=== PATIENT | male | born 1945 | race Caucasian/White ===

== ENCOUNTER 2023-07-24 12:40 | Emergency (ER) | payer OTHER, SELFPAY ==
[2023-07-24 12:44] VITALS: BP 151/48; BMI 31.9
[2023-07-24 14:01] LABS: Glucose - Point of Care 140 mg/dl (70-99)
--- NOTE | 2023-07-24 14:04 | ED.GENMED ---
History of Present Illness
General
Chief Complaint: Fall
Source: patient and ambulance crew
Exam Limitations: none
Time Seen by Provider: 07/24/23 13:20
Nursing documentation reviewed up to this point in time: agreed with
Travel History
Have you had any contact with someone who has COVID-19?: No
Do you have any symptoms of coronavirus? Fever > 100 degrees, chills, cough, shortness of breath, sore throat, loss of taste or smell, muscle aches, or headache?: No
History of Present Illness
History of Present Illness:
Patient is a 78-year-old male with a history of a stroke causing aphasia chronically, on [facility] who presents via EMS after mechanical trip and fall. Patient was leaving the [employer] house and said he tripped causing him to hit his face on the ground.
He had no loss of consciousness but he does have a laceration above his left eyebrow and perhaps bleeding from his nose. He denies significant headache, confusion, weakness or numbness in arms or legs, chest pain, belly pain, back pain, hip pain.
Patient does have swelling on his face which is slightly sore and a bump on his left wrist and pain in his left elbow. He is also complaining of mild neck discomfort
he denied chest pain initially but then said his left lower ribs hurt; pt has no pain with bleeding, no sob
Patient's does not know that the patient is here. I did call her and make her aware
Past History
Past History
ED Past Medical History: CVA, HTN, Hypercholesterolemia and IDDM
Social History
Tobacco: Non-smoker
Alcohol: None
Drug: None
Personal:
Living: with family
Review of Systems
Review of Systems
Allergies reviewed?: Yes
All Other Systems: Not applicable
Phy Exam
Physical Exam
Physical Exam:
GENERAL: Alert , in no apparent distress
HEAD: Patient has soft tissue swelling within the left superior orbit with in the eyebrow region with a laceration approximately 2 cm, the area is slightly tender to palpation
NECK: Mild lower neck tenderness, active ROM intact, no paraspinal muscle tenderness;
EYE: pupils equal and reactive, EOMs intact.
ENT: o/p clr, mmm. no hemotympanum
CARDIAC: Regular rate and rhythm, no edema
LUNGS: Clear breath sounds bilaterally, no acute respiratory distress, no wheezes/rales/rhonchi
ABDOMEN: Soft, without focal tenderness, no r/g, no cvat
NEUROLOGICAL: Alert and oriented, no focal neuro deficits, CN intact, 5/5 strength, sensation intact
SKIN: Warm and dry, laceration left eyebrow bruise to the left dorsal ulnar styloid region
MUSCULOSKELETAL: Left wrist swelling with mild pain and left elbow discomfort with full flexion and rotation
PSYCH: Normal and appropriate interaction.
Course
Orders/Labs/Results
Orders:
Orders
07/24/23 13:41
CT Cervical Spine W/o Iv Contr Urgent
Comment:
Reason For Exam: fall, neck pain
CT Facial Bones W/o Iv Contras Urgent
Comment:
Reason For Exam: fall forward, left eyebrow lac, nose bleeding
CT Head W/o Iv Contrast Urgent
Comment:
Reason For Exam: fall on eliquis
Bedside Glucose- Treatment ONCE
CR Forearm - Left 2 View Urgent
Comment:
Reason For Exam: left elbow and wrist pain after fall
07/24/23 15:46
Cephalexin Monohydrate [Keflex] 250 mg PO NOW STA
07/24/23 16:35
Tetanus/Diphth/Acelpertussis [Adacel] 0.5 ml IM .ONCE ONE
Abnormal Lab Results
07/24/23
13:57
POC Glucose 140 H mg/dl
(70-99)
Vital Signs
Initial and Last Documented VS:
Initial Vital Signs
Temp Pulse Resp BP Pulse Ox
97.6 F 52 18 151/48 97
07/24/23 12:44 07/24/23 12:44 07/24/23 12:44 07/24/23 12:44 07/24/23 12:44
Last Documented Vital Signs
Temp Pulse Resp BP Pulse Ox
97.6 F 49 18 174/62 98
07/24/23 12:44 07/24/23 16:38 07/24/23 12:44 07/24/23 16:38 07/24/23 16:38
Procedures
Laceration Closure
Left Upper Eye:
Status of Wound: clean
Description of Wound Edges: ragged and macerated
Preparation: cleaned with saline
Anesthesia: 1% Lidocaine with epi
Revision/Debridement: minor revision and irrigate-direct pressure
Wound exploration: explored to base- no FB
Type of Closure: single layer closure
Skin Closure Material: 5-0 prolene
Number of sutures: 8
Additional information:
also 1 suture placed in nose; 1 cm laceration, wound well approsmimated, linear
MDM/Problems Addressed
Differential Diagnosis Includes:
facial fracture, head injury, facial laceration, nose bleed, wrist fracture
MDM/Problems Addressed:
78 y/o m with ho cva on eliquis
h/o aphasia at baseline so he has had some slurred speech which seems stable for him
[place]pt says he was trying to keep up with other people and tripped and hit his face on the ground, no LOC
has a laceration left eyebrow and bridgre of nose with some left superior orbital swelling, left forearem pain/bruising
he initially didn't c/o rib pain but then said later it was sore
pt has not had any sob, cp, syncope, headache, vomiting, uncontrolled bleeding
tetanus was unkonwn and updated here
laceration was repaired on his left eyebrow
and 1 suture on his nose
well approximated
cts show nasal fracture
given overlyin laceration will cover with abx
all to pen with rash, but willtry keflex
ct head neg
ct c spine no fracture
left forearm xray indep reveiwed by me and neg for fx
was notified regaridng update
his son will pick him up
offered rib xray but pt says it is mild and denies that he wants cxrya
*Critical Care Note
Total Time (30-74mins, 75-104mins- exclusive of procedures): Not Applicable
ED Attending Note
-
Portions of this chart may have been created with voice recognition software.� Occasional wrong word or��sound alike� substitutions may have occurred due to the inherent limitations of voice recognition software.
Discharge Plan
Departure
Patient Disposition: Home (Routine Discharge)
Date of Disposition: 07/24/23
Time of Disposition: 16:35
Patient with high blood pressure during this ER visit?: Yes
Condition: Fair
Covid-19: Not Applicable
Discharge Problem:
Fall, Laceration of face, Fractured nose
Instructions: Head Injury in Adults (DC), Laceration Repair With Stitches (DC), Nose Fracture (DC), BLOOD PRESSURE
Prescriptions:
New
cephalexin 250 mg capsule
250 mg PO Q8H 5 Days Qty: 15 0RF
No Action
furosemide 40 MG tablet
40 mg PO DAILY
pioglitazone 45 MG tablet
45 mg PO DAILY
clonidine HCl 0.2 MG tablet
0.2 mg PO TID
simvastatin 20 MG tablet
1 tab PO DAILY
irbesartan [Avapro] 300 MG tablet
300 mg PO DAILY
Coreg
20 tab PO BID
Humalog Mix 50/50
42 unit SQ DAILY AT 0700
Patient Comments:
in am
Humalog Mix 50/50
46 units SQ QPM
METFORMIN HCL
1,000 mg PO BID
doxazosin 1 MG tablet
1 mg PO DAILY
aspirin 81 MG tablet,delayed release (DR/EC)
81 mg PO DAILY
Referrals:
Ricardo Max MD [Active] - Follow up in 5-7 days (FOR NOSE FRACTURE)
Sparkle Marti, DO [Family Provider] - Follow up in 5-7 days
Activity Restrictions/Additional Instructions:
LAILA BROKE HIS NOSE AND HAS STITCHES BUT NO BRAIN BLEEDING
ICE OFF AND ON
TYLENOL FOR PAIN NEEDED
KEFLEX 3 TIMES A DAY TO PREVENT INFECTION FOR 5 DAYS
FOLLOW UP WITH EAR NOSE AND THROAT NEEDED FOR THE NASAL BONE FRACTURE, LIKELY HE WON'T NEED ANYTHING DONE.
FOR THE STITCHES KEEP the wound clean and dry and then wash twice a day
they should be removed in 7 days by his family doctor
RETURN FOR VOMITING, CONFUSION, WEAKNESS, FACIAL PAIN, NOSE BLEEDING, INFECTION OR ANY CONCERNS.
Interventions
Interventions:
*Risk Screen - Suicide Last Done: 07/24/23 12:44
*General Assessment Last Done: 07/24/23 12:44
*Neglect/Abuse Screening Last Done: 07/24/23 12:44
ED- Fall Risk Assessment Last Done: 07/24/23 13:18
*ED COVID-19 Vaccine History Last Done: 07/24/23 12:44
ED-Musculoskeletal Assessment Last Done: 07/24/23 13:18
ED- Neurological Assessment Last Done: 07/24/23 13:18
ED-Skin Assessment Last Done: 07/24/23 13:18
[2023-07-24] MEDS: KEFLEX 250 MG PO (15:51)
[2023-07-24 16:38] VITALS: BP 174/62
[2023-07-24] MEDS: ADACEL 0.5 ML IM (16:44)
== END 2023-07-24 18:00 | disposition home or self-care (01) ==
LOC: EMR 12:40
PROVIDERS: EMERGENCY PHYSICIAN Emergency Medicine; FAMILY PHYSICIAN Family Medicine
DX: S01.112A Laceration without foreign body of left eyelid and periocular area, initial encounter (principal); S02.2XXB Fracture of nasal bones, initial encounter for open fracture; W01.0XXA Fall on same level from slipping, tripping and stumbling without subsequent striking against object, initial encounter; Z79.01 Long term (current) use of anticoagulants; Z23 Encounter for immunization
CPT/HCPCS: 99285; 90471; 12013; 70450; 70486; 72125; 73090; 82962; 90715